=== PATIENT | male | born 1960 | race Caucasian/White ===

== ENCOUNTER → 2018-10-24 | Outpatient (CLI) | payer OTHER ==
[~2018-10-24] VITALS: Ht 170.2 cm; Wt 83.5 kg
[~2018-10-24] MED LIST: LOSARTAN POTAS100 MG PO; METAXALONE800 MG PO; METOPROLOL TART25 MG PO; NORCO 5-325 TA1 EACH PO; PROTONIX40 M1 PO; SILDENAFIL CIT100 MG PO; SYNTHROID100 MC1 PO
--- NOTE | ~2018-10-24 | P ---
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 He presents today for radiofrequency ablation of his Celeste mucosa. 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 POSTOPERATIVE DIAGNOSES: 1. 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 2. A 2-3 cm sliding type hiatus hernia. MEDICATIONS: Deep sedation with propofol per anesthesia. SPECIMEN: None. ESTIMATED BLOOD LOSS: 3 mL. PROCEDURE: EGD with radiofrequency ablation of a long segment Celeste mucosa. FINDINGS: Prior to propofol sedation, procedure of endoscopy and ablation was discussed with the patient as well as potential risks and its complications. He indicates he understands and desires to proceed. DESCRIPTION OF PROCEDURE: With the patient in left lateral decubitus position, digital examination was completed, which revealed no abnormalities. Subsequently, the Olympus video endoscope was inserted in the cervical esophagus under direct vision without difficulty. Examination of this organ through its entire length revealed normal esophageal mucosa in the very proximal esophagus. Starting at about 28 cm, the squamocolumnar junction was identified and distally was a long segment of Celeste mucosa. The top of the intestinal metaplasia was at 28 cm. The top of the gastric folds was at 37 cm. The mucosa was inspected with both white light and narrow banded imaging and the mucosa was completely flat. There were no raised lesions. There were no ulcerations. He had radiofrequency ablation at 33 cm and no scarring was seen at that level. The scope was advanced through the hiatus hernia. The mucosa and hernia was unremarkable. The scope was then advanced into the stomach, which was examined [facility] [address] [place] [address] PROCEDURE REPORT Name: PRISCILA THOMPSON Room #: REG [facility].#: [id number] Admission: 10/24/18 ������������������ Attend Phys: Morgan Mckenzie MD Discharge: ������������������ Date of : 58 Report #: [id number] on end view as well as retroflexed views. He had normal appearing gastric mucosa. Upon retroflexion, the hiatus hernia was seen. No other abnormalities were identified. The pylorus, duodenal bulb, and postbulbar sweep were all inspected and noted to be unremarkable. At that point, the scope was drawn back in the esophagus. The esophagus was rinsed with a Mucomyst solution. A guidewire was then inserted. The scope was withdrawn. Subsequently, the combination 360 balloon/sizing balloon was introduced in the esophagus over the wire. Once the Halo 360 catheter was introduced, the scope was inserted alongside the catheter. The catheter was aligned with the top of the intestinal metaplasia and the segment was treated with one application of 10 joules of energy. Good contact was obtained. The catheter was advanced 3 cm and another treatment was applied and then another 3 cm, another treatment was applied. The scope and catheter were withdrawn. The catheter was clean. The scope was fitted with the cleaning cap and the coagulant was scraped from the esophagus. There was no evidence of significant injury to the esophagus and specifically no tears were seen. All the coagulant was scraped away. The catheter was then again inserted over a guidewire and the process was repeated with 1 application at all 3 levels. After treatment, the catheter and scope withdrawn and the scope was reinserted and again a good contact was made throughout the entire long segment of Celeste's. No significant mucosal tearing was seen. Significant bleeding was not seen. Scope was withdrawn. The patient tolerated the procedure well. CONDITION OF THE PATIENT UPON DISCHARGE: Following procedure, the patient was drowsy, will be discharged home when fully ambulatory. INSTRUCTIONS TO THE PATIENT AND FAMILY AT THE TIME OF DISCHARGE: We will have the patient increase his pantoprazole to 40 mg twice daily. We will add sucralfate suspension as well, in addition add viscous lidocaine and liquid hydrocodone. We will have him return in 8 weeks for reevaluation and consideration for repeat treatment if needed. ��������������������������������������������� ���������������������������������������� By: ��������������������������������������������� 0827 2333 Morgan Mckenzie MD /rosalind
== END | disposition home or self-care (01) ==
LOC: GI 06:32
DX: K22.70 Barrett's esophagus without dysplasia (principal); D00.1 Carcinoma in situ of esophagus; K44.9 Diaphragmatic hernia without obstruction or gangrene; Z87.891 Personal history of nicotine dependence; I10 Essential (primary) hypertension; E78.5 Hyperlipidemia, unspecified; K21.9 Gastro-esophageal reflux disease without esophagitis; K76.0 Fatty (change of) liver, not elsewhere classified; E03.9 Hypothyroidism, unspecified
CPT/HCPCS: 62110; 62900

== ENCOUNTER → 2019-01-06 | Outpatient (CLI) | payer OTHER ==
[~2019-01-06] VITALS: Ht 167.6 cm; Wt 83.9 kg
[~2019-01-06] MED LIST changes: +FLEXERIL PO; +ZANTAC300 MG PO
--- NOTE | 2019-01-07 11:42 | P ---
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 Madrigal. He now presents for his second ablative therapy for Jeevan's with radiofrequency ablation. His 9 cm segment was ablated with balloons on 10/24. He reports his reflux symptoms are well controlled. He denies any dysphagia. PREOPERATIVE DIAGNOSES: History of Celeste's esophagus with intramucosal adenocarcinoma. POSTOPERATIVE DIAGNOSES: History of Celeste's esophagus with intramucosal adenocarcinoma. MEDICATIONS: Deep sedation with propofol per Anesthesia. SPECIMEN: None. ESTIMATED BLOOD LOSS: 3 mL. PROCEDURE: EGD with radiofrequency ablation. FINDINGS: Prior to propofol sedation, procedure of upper endoscopy and treatment of Celeste's was discussed with the patient as well as potential risks and its complications. He indicates he understands and desires to proceed. DESCRIPTION OF PROCEDURE: With the patient in left lateral decubitus position, Olympus video endoscope was inserted in the cervical esophagus under direct vision without difficulty. Examination of this organ throughout its entire length revealed large islands of Celeste mucosa. The gastroesophageal junction was at 38 cm, the top of intestinal metaplasia was about 29 cm. There were areas of normal appearing squamous mucosa, which was flat. There were also large islands of Celeste mucosa, scattered about. I would say about 50% of the lumen still had residual Celeste's. The Celeste mucosa was inspected. The mucosa was flat. It was rinsed with Mucomyst solution. We then treated with the 90 device per home organizer's recommendations. A total of 20 sites were treated with initial pass and 40 applications were applied on those 20 spots. With these treatments, all visible areas of Celeste's were treated. The scope was withdrawn, the device was cleaned. A cleaning cap was placed on the scope and the coagulant was scraped from the treated areas. The scope was reintroduced and we repeated and treated all areas once again with [address] [address] PROCEDURE REPORT Name: PRISCILA THOMPSON [id number] Admission: 01/06/19 ������������������ Attend Phys: Morgan Mckenzie MD Discharge: ������������������ Date of : 58 Report #: [id number] applications at each site. A total of 80 applications at 20 sites were applied today. The patient tolerated the procedure well. CONDITION OF THE PATIENT UPON DISCHARGE: Following procedure, the patient was drowsy, arousable and he will be discharged home when fully ambulatory. INSTRUCTIONS TO THE PATIENT AND FAMILY AT THE TIME OF DISCHARGE: We will have the patient continue his twice daily PPI. He also may use hydrocodone suspension as needed as well as sucralfate. He may use GI cocktail as needed. We will have him return in 8 weeks for his next endoscopy with a look and possibly treatment if needed. ��������������������������������������������� <ELECTRONICALLY SIGNED> ���������������������������������������� By: Morgan Mckenzie MD ��������������������������������������������� 01/07/19 1142 0820 1259 Morgan Mckenzie MD /nt
== END | disposition home or self-care (01) ==
LOC: GI 12-30 15:18
DX: K22.711 Barrett's esophagus with high grade dysplasia (principal); Z85.01 Personal history of malignant neoplasm of esophagus; K21.9 Gastro-esophageal reflux disease without esophagitis; I10 Essential (primary) hypertension; E03.9 Hypothyroidism, unspecified; G43.909 Migraine, unspecified, not intractable, without status migrainosus; Z87.19 Personal history of other diseases of the digestive system; Z87.891 Personal history of nicotine dependence; Z98.890 Other specified postprocedural states; Z79.899 Other long term (current) drug therapy; Z88.8 Allergy status to other drugs, medicaments and biological substances

== ENCOUNTER → 2019-03-03 | Outpatient (CLI) | payer OTHER ==
[~2019-03-03] VITALS: Ht 167.6 cm; Wt 86.2 kg
--- NOTE | 2019-03-03 17:04 | P ---
[facility] [place] [address] PROCEDURE REPORT Name: PRISCILA THOMPSON Macarena Room #: REG [facility]#: [id number] Admission: 03/03/19 ������������������ Attend Phys: Morgan Mckenzie MD Discharge: ������������������ Date of : 58 Report #: [id number] THIS REPORT FOR: //name// CC: Morgan Mckenzie BRIEF HISTORY: The patient is a 58-year-old male who has had a focal intramucosal adenocarcinoma of the esophagus, status post endoscopic mucosal resection now for treatment of his long segment Celeste's esophagus. PREOPERATIVE DIAGNOSIS: History of resected intramucosal adenocarcinoma of the esophagus with long segment Celeste's. POSTOPERATIVE DIAGNOSES: 1. Long segment Celeste esophagus. 2. Small hiatus hernia. 3. Diffuse gastritis. MEDICATIONS: Deep sedation with propofol per anesthesia. SPECIMEN: None. ESTIMATED BLOOD LOSS: None. PROCEDURE: EGD with radiofrequency ablation of Celeste esophagus. FINDINGS: Prior to propofol sedation, procedure of radiofrequency ablation of the esophagus was reviewed with the patient. He indicates he understands and desires to proceed. DESCRIPTION OF PROCEDURE: With the patient in the left lateral decubitus position, the Olympus video endoscope was inserted in the cervical esophagus under direct vision without difficulty. Examination of this organ through its entire length revealed normal esophageal mucosa in the very proximal esophagus. As we advanced the scope distally, the uppermost reaches of the intestinal metaplasia was at about 30 cm. The squamocolumnar junction was at 38 cm. In this segment of the esophagus, the Celeste mucosa area is markedly diminished from his last treatment session. Last treatment session, I estimated he had about 50% involvement of the lumen. Today, I would say it is about 20%. There are areas in particular at the very distal esophagus that there is complete circumferential normal appearing esophageal mucosa. Throughout the remainder of the segment, there are islands from small islands to several centimeters of Celeste type mucosa. The entire esophagus was examined with both white light and narrow banded imaging. The mucosa was flat. No mass lesions, nodules or ulcers were seen. The squamocolumnar junction was intact and right at the top of the gastric folds except for one small area. Distal to this area was a small [facility] [address] [place] [address] PROCEDURE REPORT Name: JAYPRISCILA Room #: REG [facility] Ken.#: [id number] Admission: 03/03/19 ������������������ Attend Phys: Morgan Mckenzie MD Discharge: ������������������ Date of : 58 Report #: [id number] 2-3 cm sliding type hiatus hernia, which has been noted in the past. The scope was advanced into the stomach, which was examined on end view as well as retroflexed views. There was diffuse gastritis, which had been previously noted. There was erythema throughout the entire stomach. No ulcers or erosions were seen. Upon retroflexion, no mass lesions were seen. The pylorus was unremarkable. Duodenal bulb was unremarkable. Duodenal sweep was unremarkable. At that point, the scope was withdrawn back into the distal esophagus. The esophagus was then rinsed with a Mucomyst solution. The Mucomyst was aspirated from the esophagus and the scope was withdrawn and fitted with the Halo 60 device and the device was reinserted in the esophagus. We then ablated all visible areas of Celeste's with two applications per trimmer hand's recommendations. Once all visible areas were treated, the scope was withdrawn. The device was removed and cleaned and a cleaning chamber was attached to the end of the scope and the coagulant was scraped from the treated areas. Upon scraping the coagulant, there was a thickened area within the Celeste segment at 35 cm. This was not noted prior to treatment. Unfortunately, this area had been treated and it was difficult to determine the significance of this abnormality. Consideration was given to biopsy, but the area was already treated and potentially it will be very difficult to interpret mucosal biopsy findings after treatment. This area will need to be looked at carefully upon his return. We then proceeded and treated all previously treated areas with two further applications. All visible areas were treated. There was no bleeding. The scope was withdrawn. The patient tolerated the procedure well. CONDITION OF THE PATIENT UPON DISCHARGE: Following procedure, the patient drowsy and he will be discharged home when fully ambulatory. INSTRUCTIONS TO THE PATIENT AND FAMILY AT THE TIME OF DISCHARGE: Significant improvement of his Celeste mucosa. He was treated as described. There is an area of concern at 35 cm, which will need to be carefully examined when he returns for his next evaluation. At that point in time, I would anticipate there just may be a few areas that require minimal treatment. He should continue his twice daily PPI and antireflux measures. ��������������������������������������������� <ELECTRONICALLY SIGNED> ���������������������������������������� By: Morgan Mckenzie MD ��������������������������������������������� 03/03/19 1704 0821 0922 Morgna Mckenzie MD /rosalind
== END | disposition home or self-care (01) ==
LOC: GI 06:28
DX: K22.70 Barrett's esophagus without dysplasia (principal); K29.70 Gastritis, unspecified, without bleeding; K44.9 Diaphragmatic hernia without obstruction or gangrene; I10 Essential (primary) hypertension; G43.909 Migraine, unspecified, not intractable, without status migrainosus; E03.9 Hypothyroidism, unspecified; K21.9 Gastro-esophageal reflux disease without esophagitis; Z87.19 Personal history of other diseases of the digestive system; Z98.890 Other specified postprocedural states; Z87.891 Personal history of nicotine dependence; Z79.899 Other long term (current) drug therapy; Z88.8 Allergy status to other drugs, medicaments and biological substances; Z79.891 Long term (current) use of opiate analgesic

== ENCOUNTER → 2019-05-05 | Outpatient (CLI) | payer OTHER ==
[~2019-05-05] VITALS: Ht 167.6 cm; Wt 86.2 kg
[~2019-05-05] MED LIST changes: +SYNTHROID112 MC1
--- NOTE | ~2019-05-05 | P ---
[facility] [place] [address] PROCEDURE REPORT Name: PRISCILA THOMPSON Room #: REG [facility]#: [id number] Admission: 05/05/19 ������������������ Attend Phys: Morgan Mckenzie MD Discharge: ������������������ Date of : 58 Report #: [id number] THIS REPORT FOR: //name// CC: Morgan Mckenzie DATE OF SERVICE: 05/05/2019 OUTPATIENT UPPER ENDOSCOPY REPORT. BRIEF HISTORY: The patient is a 58-year-old male well known to me who had a focal in situ adenocarcinoma of the esophagus which was treated with endoscopic mucosal resection. He presents for continued radiofrequency ablation of his long segment Celeste's esophagus. PREOPERATIVE DIAGNOSES: History of esophageal cancer and Celeste's esophagus. POSTOPERATIVE DIAGNOSES: 1. Celeste's esophagus. 2. Small hiatus hernia. 3. Diffuse gastritis. MEDICATIONS: Deep sedation with propofol per Anesthesia. SPECIMEN: Biopsies of esophagus at 35 cm. ESTIMATED BLOOD LOSS: 3 mL PROCEDURE: EGD with radiofrequency ablation and biopsy. FINDINGS: Prior to propofol sedation, the procedure of upper endoscopy and radiofrequency ablation was discussed with the patient as well as potential risks and its complications. He indicates he understands and desires to proceed. DESCRIPTION OF PROCEDURE: With the patient in left lateral decubitus position, the Olympus video endoscope was inserted in the cervical esophagus without difficulty. Examination of this organ through its entire length revealed normal esophageal mucosa in the mid esophagus. As we advanced the scope starting at about 32 cm, a few scattered islands of Celeste's mucosa were seen. However, no circumferential Celeste was seen today. This squamocolumnar junction was identified at about 40 cm. A small hiatus hernia was intermittently seen. The scope was advanced into the stomach, which was examined on end view as well as retroflexed views. There was a pattern of gastritis been previously noted. Biopsies were not obtained today. Upon retroflexion, no mass lesions were seen. [facility] [address] [place] [address] PROCEDURE REPORT Name: JAYPRISCILA Room #: REG [facility]#: [id number] Admission: 05/05/19 ������������������ Attend Phys: Morgan Mckenzie MD Discharge: ������������������ Date of : 58 Report #: [id number] The pylorus, duodenal bulb and postbulbar and sweep were inspected and noted to be unremarkable. The scope was then withdrawn back in the esophagus. We continued to examine the esophagus with both white light and narrow banded imaging. Again, there were just a few scattered islands of Celeste with 1 at the squamocolumnar junction and in the most proximal at 32 cm. Also, particular attention was paid to the esophagus at 35 cm. At the time of his last treatment, following treatment with radiofrequency ablation, there was a questionable raised area at 35 cm. It was not clear whether this was an island of Celeste that was more obvious after treatment or whether it actually represented a raised area. It was not seen prior to treatment. This area was carefully examined with white light and narrow banded imaging. Almost the entire circumference at this level was completely healed with squamous mucosa. I could not see any raised lesions, strictures or mass lesions. There was an island of Celeste at this level. The mucosa was completely flat. Again, no raised areas were seen. Random biopsies were obtained of the squamous mucosa. These areas were not treated today. Subsequently, we rinsed the esophagus with Mucomyst solution. The scope was withdrawn and fitted with the 60 device and reinserted and all visible areas of Celeste were treated with 2 applications of 12 joules per cm2 per training representative's instructions. After 2 passes were made at each site, the scope was withdrawn, the device was cleaned and the scope was fitted with a cleaning cap and the coagulant was scraped from the treated areas. We then reinserted the device and treated all areas once again with 2 additional applications. We also identified 1 focal area, which was missed on the first treatment past and this site was treated with 2 applications and then repeated with another 2. A total of 8 sites were treated today with 32 applications. All visible areas were treated. The scope was withdrawn. The patient tolerated the procedure well. CONDITION OF THE PATIENT UPON DISCHARGE: Following procedure, the patient drowsy and will be discharged home when fully ambulatory. INSTRUCTIONS TO THE PATIENT AND FAMILY AT THE TIME OF DISCHARGE: Areas of Celeste's treated as described. No raised or flat lesions were seen today. Biopsies were obtained of an area which was suspicious at the time of his last treatment. We will follow up on biopsies and make further recommendations. At this point in time, we will plan to have him return in 8 weeks for repeat inspection and potential treatment with radiofrequency ablation. ��������������������������������������������� ���������������������������������������� By: ��������������������������������������������� 0910 2307 Morgan Mckenzie MD /rosalind
--- NOTE | 2019-05-08 13:07 | PATH ---
[facility] [address] [place] [address] PATHOLOGY RPT PROCEDURE Name: MYLENERUBIPRISCILA Room #: REG WILL[facility] Rogers.#: [id number] ������������������ Admission: 05/05/19 ������������������ Date of : 58 Discharge: Report #: [id number] Path Case #: [id number] [facility] Accession Number: [id number] . 01 Material submitted: . esophagus - BX OF ESOPHAGUS AT 35CM . 01 Clinical history: . Adenocarcinoma in situ esophagus status post mucosal resection and radiofrequency ablation, Celeste's esophagus. . 02 Diagnosis: Squamous mucosa, esophagus at 35 cm rule out dysplasia or neoplasm, endoscopic biopsy: - Reactive/reparative changes. See comment. - Negative for malignancy. (IUV:medical technologist chief; 05/08/2019) [facility] 05/08/2019 1042 Local . 02 Comment: Examination shows reactive squamous epithelial fragments overlying fibrotic stroma underneath associated with focal hemorrhage. Columnar epithelium/mucosa or intestinal metaplasia are not identified. The provided history of adenocarcinoma in situ status post mucosal resection and a radiofrequency ablation is noted. There is no dysplasia or malignancy present within the current biopsy tissue material submitted. (IUV:medical technologist chief; 05/08/2019) . 02 Electronically signed: . Keiko Zaragoza MD, Pathologist NPI- [id number] . 01 Gross description: . Received in formalin labeled "Priscila Crawford, BX of esophagus at 35 cm" is a 0.8 x 0.4 x 0.1 cm aggregate of melissa-brown mucosa fragments. The specimen is submitted in A1. ([facility]; 05/06/2019) [facility] 05/06/2019 1536 Local . 02 Pathologist provided ICD-10: D00.1, K22.70 . 02 CPT . 578720 Specimen Comment: A courtesy copy of this report has been sent to Specimen Comment: [phone], . Specimen Comment: Report sent to / DR WARD Performed at: [address] [place] [address] PATHOLOGY RPT PROCEDURE Name: PRISCILA CRAWFORD Room #: REG WILLIE Palacio#: [id number] ������������������ Admission: 05/05/19 ������������������ Date of : 58 Discharge: Report #: [id number] Path Case #: [id number] [facility] Fanny Daugherty [address] [place] [address] [address], Fanny Daugherty [place] [id number] MD Christiano Valencia MD Phone: [phone] Performed at: [address] [id number] MD Keiko Zaragoza MD Phone: [phone]
== END | disposition home or self-care (01) ==
LOC: GI 07:03
DX: K22.70 Barrett's esophagus without dysplasia (principal); K44.9 Diaphragmatic hernia without obstruction or gangrene; K29.70 Gastritis, unspecified, without bleeding; I10 Essential (primary) hypertension; G43.909 Migraine, unspecified, not intractable, without status migrainosus; K21.9 Gastro-esophageal reflux disease without esophagitis; E03.9 Hypothyroidism, unspecified; Z87.891 Personal history of nicotine dependence; Z86.008 Personal history of in-situ neoplasm of other site; Z98.890 Other specified postprocedural states; Z79.899 Other long term (current) drug therapy; Z88.0 Allergy status to penicillin; Z79.891 Long term (current) use of opiate analgesic; Z88.8 Allergy status to other drugs, medicaments and biological substances
CPT/HCPCS: 62110; 62900

== ENCOUNTER → 2019-06-16 | Outpatient (CLI) | payer OTHER ==
--- NOTE | 2019-06-19 11:53 | P ---
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 PREOPERATIVE DIAGNOSIS: Celeste's esophagus with history of esophageal carcinoma. POSTOPERATIVE DIAGNOSES: 1. Celeste's esophagus, history of carcinoma of the esophagus. 2. Small hiatus hernia. MEDICATIONS: Deep sedation with propofol per anesthesia. SPECIMEN: None. ESTIMATED BLOOD LOSS: None. PROCEDURE: Radiofrequency ablation of Celeste's esophagus. FINDINGS: Prior to propofol sedation, the procedure of upper endoscopy and radiofrequency ablation was discussed with the patient as well as potential risks and its complications. He indicates he understands and desires to proceed. DESCRIPTION OF PROCEDURE: With the patient in left lateral decubitus position, the Olympus video endoscope was inserted in the cervical esophagus under direct vision without difficulty. Examination of this organ through its entire length revealed intact esophageal mucosa. The patient has had multiple treatment sessions with the radiofrequency ablation. The entire length of the esophagus was examined with both white light and narrow banded imaging. Examination of the squamocolumnar junction revealed it to be somewhat irregular at 2 points. This may or may not present residual Celeste's esophagus. As we examined the entire length of the esophagus, several small islands of residual Celeste's mucosa were identified. His intramucosal carcinoma was I believe at about 33 cm and at one point, there was also concern about a raised area at 35 cm. Extra care was given to these areas. There is no evidence of thickening or mass lesions or ulcerations. The residual islands of Celeste scattered from about 25 cm down to the squamocolumnar junction. The scope was advanced fully into the stomach, was examined on end view as well as retroflexed views. [facility] [address] [place] [address] PROCEDURE REPORT Name: PRISCILA THOMPSON Room #: REG [facility].#: [id number] Admission: 06/16/19 Attend Phys: Morgan Mckenzie MD Discharge: Date of : 58 Report #: [id number] abnormalities were seen. Upon retroflexion, no mass lesions were seen. The pylorus, duodenal bulb, and postbulbar duodenal sweep were inspected and noted to be unremarkable. The scope was then withdrawn back into the esophagus. The esophagus was rinsed with a Mucomyst solution. Then, we used the channel catheter and treated 6 areas of suspected residual Celeste's mucosa. A total of 24 applications were applied with 4 applications at each location The patient tolerated the procedure well. CONDITION OF THE PATIENT UPON DISCHARGE: Following procedure, the patient drowsy and arousable. He will be discharged home when fully ambulatory. INSTRUCTIONS TO THE PATIENT AND FAMILY AT THE TIME OF DISCHARGE: All visible areas of Celeste were treated today. We will treat with high dose PPI. We will have him return in 8 weeks and likely at that time, biopsies of his esophagus. <ELECTRONICALLY SIGNED> By: Morgan Mckenzie MD 06/19/19 1153 0853 1859 Morgan Mckenzie MD /nt
== END | disposition home or self-care (01) ==
LOC: GI 07:12
DX: K22.70 Barrett's esophagus without dysplasia (principal); K44.9 Diaphragmatic hernia without obstruction or gangrene; Z85.01 Personal history of malignant neoplasm of esophagus; Z98.890 Other specified postprocedural states; Z88.8 Allergy status to other drugs, medicaments and biological substances; Z79.891 Long term (current) use of opiate analgesic; Z79.899 Other long term (current) drug therapy
CPT/HCPCS: 62110; 62900

== ENCOUNTER → 2019-08-11 | Outpatient (CLI) | payer OTHER ==
[~2019-08-11] VITALS: Ht 167.6 cm; Wt 86.2 kg
[~2019-08-11] MED LIST changes: +MULTI VITAMIN1 EACH PO; -SYNTHROID112 MC1; +SYNTHROID112 MC1 PO
--- NOTE | 2019-08-14 17:09 | P ---
[facility] [place] [address] PROCEDURE REPORT Name: JAYPRISCILA Macarena Room #: REG [facility]#: [id number] Admission: 08/11/19 Attend Phys: Morgan Mckenzie MD Discharge: Date of : 58 Report #: [id number] THIS REPORT FOR: //name// CC: Morgan Mckenzie OUTPATIENT UPPER ENDOSCOPY REPORT BRIEF HISTORY: The patient is a 58-year-old male with a history of Celeste's esophagus with intramucosal adenocarcinoma treated with endoscopic mucosal resection and subsequently treated with radiofrequency ablation for his long segment Celeste's esophagus. He presents for followup evaluation and possible treatment if indicated. PREOPERATIVE DIAGNOSIS: Long segment Celeste's esophagus with intramucosal adenocarcinoma, status post treatment. POSTOPERATIVE DIAGNOSES: 1. History of Celeste's, status post endoscopic mucosal resection and radiofrequency ablation. 2. Small hiatus hernia. 3. Diffuse gastritis. MEDICATIONS: Deep sedation with propofol per anesthesia. SPECIMENS: 1. Biopsies of esophagus at 40 cm. 2. Biopsies of esophagus at 38 cm. 3. Biopsies of esophagus at 36 cm. 4. Biopsies of esophagus at 34 cm. 5. Biopsies of esophagus at 32 cm. ESTIMATED BLOOD LOSS: 5 mL. PROCEDURE: EGD with biopsy. FINDINGS: Prior to propofol sedation, procedure of upper endoscopy was discussed with the patient as well as potential risks and its complications. He indicates he understands and desires to proceed. DESCRIPTION OF PROCEDURE: With the patient in left lateral decubitus position, the Olympus video endoscope was inserted in cervical esophagus under direct vision without difficulty. Examination of this organ through its entire length revealed normal esophageal mucosa down the squamocolumnar junction. Squamocolumnar junction was inspected and noted to be intact. It was in good position at the top of the gastric folds, which was identified at about 40 cm. [facility] [address] [place] [address] PROCEDURE REPORT Name: PRISCILA THOMPSON Room #: REG [facility]#: [id number] Admission: 08/11/19 Attend Phys: Morgan Mckenzie MD Discharge: Date of : 58 Report #: [id number] The scope was passed through the entire length of esophagus on multiple times and both narrow banded imaging and white light were used. The mucosa was intact. It was flat. There were no ulcerations. Celeste's esophagus was not identified. The scope was advanced and a small sliding type hiatus hernia was noted. The mucosa and hernia was unremarkable. The scope was advanced in the stomach, was examined on end views as well as retroflexed views. There was a diffuse gastritis, which previously noted. Biopsies were not repeated today. Upon retroflexion, the hiatus hernia was seen. The squamocolumnar junction was identified and noted to be unremarkable. The scope was then further advanced where the pylorus was unremarkable. Duodenal bulb was unremarkable and postbulbar duodenal sweep was inspected and noted to be unremarkable. The scope was then withdrawn back in the esophagus and multiple biopsies were obtained along the GE junction as well as the entire previously treated long segment of Celeste mucosa. Scope was withdrawn. The patient tolerated the procedure well. CONDITION OF THE PATIENT UPON DISCHARGE: Following procedure, the patient drowsy and arousable. He will be discharged home when fully ambulatory. INSTRUCTIONS TO THE PATIENT AND FAMILY AT THE TIME OF DISCHARGE: A definite Celeste was not seen today. We will follow up on biopsies and make further recommendations. If there was no evidence of Celeste's mucosa, he should return in 3 months for followup endoscopy and biopsy of the squamocolumnar junction. If Celeste is present, he may need additional treatment. He should continue his twice daily PPI and ranitidine as needed. <ELECTRONICALLY SIGNED> By: Morgan Mckenzie MD 08/14/19 1709 Morgan Mckenzie MD /nt
--- NOTE | 2019-08-15 13:07 | PATH ---
[facility] [place] [address] PATHOLOGY RPT PROCEDURE Name: JAYPRISCILA Room #: REG [facility] M.R.#: [id number] Admission: 08/11/19 Date of : 58 Discharge: Report #: [id number] Path Case #: [id number] [facility] Accession Number: [id number] . 01 Material submitted: . PART A: colon - BIOPSY OF GE JUNCTION PART B: esophagus - BIOPSY OF ESOPHAGUS AT 38CM PART C: esophagus - BIOPSY OF ESOPHAGUS AT 36CM PART D: esophagus - BIOPSY OF ESOPAGUS AT 34CM PART E: esophagus - BIOPSY OF ESOPHAGUS AT 32CM . 01 Clinical history: . History of Celeste's with esophageal cancer, hiatus hernia, gastritis . 02 Diagnosis: A. "GE junction, status post ablation to rule out Celeste's, at 40 cm, biopsy": - Squamocolumnar epithelium with moderate acute and chronic inflammation. - No evidence of intestinal metaplasia. . B, C, D and E. Esophagus, 38 cm, 36 cm, 34 cm, and 32 cm, biopsy: - Hyperplastic squamous epithelium without significant inflammation. - No columnar epithelium identified. . (SKM:corinne; 08/15/2019) QLM 08/15/[address] [facility] . 02 Electronically signed: . Piotr Smith MD, Pathologist NPI- [id number] . 01 Gross description: . A. The specimen is received in formalin, labeled "Priscila Crawford, GE junction biopsy to R/O Celeste's". Received are eight segments of pale melissa soft tissue ranging in size from 0.3 to 0.5 cm in maximum dimensions. The specimen is submitted entirely in cassette A1. . B. The specimen is received in formalin, labeled "Priscila Crawford, biopsy of esophagus at 38 cm". Received are six segments of pale melissa soft tissue ranging in size from 0.3 to 0.5 cm in maximum dimensions. The specimen is submitted entirely in cassette B1. . C. The specimen is received in formalin, labeled "Priscila Crawford, biopsy of esophagus at 36 cm". Received are eight segments of pale melissa soft tissue ranging in size from 0.2 to 0.5 cm in maximum dimensions. The specimen is submitted entirely in [place] [address] PATHOLOGY RPT PROCEDURE Name: MYLENEPRISCILA VENEGAS [id number] Admission: 08/11/19 Date of : 58 Discharge: Report #: [id number] Path Case #: [id number] D. The specimen is received in formalin, labeled "Priscila Crawford, biopsy of esophagus at 34 cm". Received are seven segments of pale melissa soft tissue ranging in size from 0.2 to 0.4 cm in maximum dimensions. The specimen is submitted entirely in cassette D1. . E. The specimen is received in formalin, labeled "Priscila Crawford, biopsy of esophagus at 32 cm". Received are five segments of pale melissa soft tissue ranging in size from 0.3 to 0.4 cm in maximum dimensions. The specimen is submitted entirely in cassette E1. (CAA; 08/14/2019) QAC/QAC 08/14/2019 1548 Local . 02 Pathologist provided ICD-10: K20.8 . 02 CPT . 315307, 629519, 453467, 143526, 295233 Specimen Comment: A courtesy copy of this report has been sent to [phone] Specimen Comment: [phone], Specimen Comment: Report sent to ,DR WARD / DR FRANCIS Performed at: [address] [facility] [address], [place], [place] [id number] MD Christiano Valencia MD Phone: [phone] Performed at: [address] [facility] [address] [id number] MD Keiko Zaragoza MD Phone: [phone]
== END | disposition home or self-care (01) ==
LOC: GI 07-07 15:26
DX: K20.8 Other esophagitis (principal); K29.70 Gastritis, unspecified, without bleeding; K44.9 Diaphragmatic hernia without obstruction or gangrene; K21.9 Gastro-esophageal reflux disease without esophagitis; G43.909 Migraine, unspecified, not intractable, without status migrainosus; I10 Essential (primary) hypertension; E03.9 Hypothyroidism, unspecified; Z98.890 Other specified postprocedural states; Z79.899 Other long term (current) drug therapy; Z87.891 Personal history of nicotine dependence; Z88.1 Allergy status to other antibiotic agents; Z88.8 Allergy status to other drugs, medicaments and biological substances
CPT/HCPCS: 62110; 62900

== ENCOUNTER → 2020-02-02 | Outpatient (CLI) | payer OTHER ==
[~2020-02-02] VITALS: Ht 167.6 cm; Wt 92.5 kg
[~2020-02-02] MED LIST changes: +FISH OIL 1,0001 EAC9 PO
--- NOTE | 2020-02-05 08:50 | P ---
[facility] [place] [address] PROCEDURE REPORT Name: PRISCILA THOMPSON Room #: REG [facility]#: [id number] Admission: 02/02/20 Attend Phys: Morgan Mckenzie MD Discharge: Date of : 58 Report #: [id number] THIS REPORT FOR: cc: Morgan Raya MD, John H. MD Thesing,Morgan Desai MD ~ CC: Morgan Mckenzie BRIEF HISTORY: The patient is a 59-year-old male with a history of Celeste's esophagus with high-grade dysplasia and intramucosal adenocarcinoma, treated with endoscopic mucosal resection of the small carcinoma and subsequent treatment of the esophagus with radiofrequency ablation. He presents for followup evaluation and monitor his history of adenocarcinoma of the esophagus. PREOPERATIVE DIAGNOSES: History of adenocarcinoma of the esophagus and Celeste's. POSTOPERATIVE DIAGNOSES: 1. A 3-cm sliding type hiatus hernia. 2. Diffuse gastritis. 3. Very questionable mucosal irregularity, distal esophagus. MEDICATIONS: Deep sedation with propofol per anesthesia. SPECIMENS: 1. Biopsies of GE junction at 37 cm. 2. Biopsy of questionable lesion, distal esophagus at 35 cm. 3. Biopsy of questionable lesion at 30 cm, esophagus. ESTIMATED BLOOD LOSS: 3 mL. PROCEDURE: EGD with biopsy. FINDINGS: Prior to propofol sedation, the procedure of upper endoscopy was reviewed with the patient as well as potential risks and its complications. He indicates he understands and desires to proceed. DESCRIPTION OF PROCEDURE: With the patient in the left lateral decubitus position, the Olympus video endoscope was inserted in the cervical esophagus under direct vision without difficulty. Examination of this organ through its entire length revealed normal esophageal mucosa throughout the length of the esophagus. The esophagus was examined with both white light and narrow banded imaging. I did not see obvious Celeste mucosa. The squamocolumnar junction was intact. It was slightly irregular, but obvious Celeste mucosa was not seen. The squamocolumnar junction was essentially at the top of the gastric folds. [facility] [address] [place] [address] PROCEDURE REPORT Name: PRISCILA THOMPSON Room #: REG [facility]#: [id number] Admission: 02/02/20 Attend Phys: Morgan Mckenzie MD Discharge: Date of : 58 Report #: [id number] Multiple passes were made with the scope with white light as well as narrow banded imaging. About 2 cm proximal to the GE junction, there was a very questionable area of mucosal irregularity. It did not appear to be obvious Celeste, but the mucosa appeared somewhat irregular and this area was biopsied. A similar area that was even more subtle 30 cm was seen and biopsied as well. The scope was advanced and he has a 3-cm sliding type hiatus hernia. The mucosa of hernia was unremarkable. The scope was advanced in the stomach, was examined on end view as well as retroflexed views. He does have the gastritis which has been noted in the past. It is most in the antrum, but there are linear striations in the body of the stomach as well. No ulcers were seen. No bleeding lesions were seen. Upon retroflexion, hiatus hernia was seen, but no other abnormalities were identified. The pylorus, duodenal bulb and postbulbar duodenal sweep were all inspected and noted to be unremarkable. At that point, the scope was slowly withdrawn and careful circumferential views confirmed the above findings. The patient tolerated the procedure well. CONDITION OF THE PATIENT UPON DISCHARGE: Following procedure, the patient drowsy, arousable and conversant and will be discharged home when fully ambulatory. INSTRUCTIONS TO THE PATIENT AND FAMILY AT THE TIME OF DISCHARGE: We will follow up on biopsies and make further recommendations. If there is no evidence of Celeste and no evidence of dysplasia, he should return for followup in 1 year. He also should continue his PPI on a daily basis. If there is Celeste or dysplasia, further intervention or evaluation may be needed. He will otherwise return to the care of Dr. Morgan Raya. <ELECTRONICALLY SIGNED> By: Morgan Mckenzie MD 02/05/20 0850 0812 0843 Morgan Mckenzie MD /nt
--- NOTE | 2020-02-06 10:07 | PATH ---
[facility] [place] [address] PATHOLOGY RPT PROCEDURE Name: PRISCILA CRAWFORD Macarena Room #: REG [facility] M.Deng.#: [id number] Admission: 02/02/20 Date of : 58 Discharge: Report #: [id number] Path Case #: [id number] [facility] Accession Number: [id number] . 01 Material submitted: . PART A: esophagus - BX OF GE JUNCTION AT 37CM PART B: esophagus - BX OF ESOPHAGUS AT 35CM PART C: esophagus - BX OF ESOPHAGUS AT 30CM . 01 Clinical history: . History of Celeste's with high-grade dysplasia and intramucosal adenocarcinoma . 02 Diagnosis: A. Gastroesophageal mucosa, GE junction at 37 cm, endoscopic biopsy: - Gastric cardia-type mucosa with moderate acute and chronic inflammation. - Squamous mucosa with active esophagitis. - Negative for intestinal metaplasia or dysplasia. . B. Squamous mucosa, esophagus at 35 cm, endoscopic biopsy: - Mild active esophagitis. - Negative for intestinal metaplasia or dysplasia. . C. Gastroesophageal mucosa, esophagus at 30 cm, endoscopic biopsy: - Gastric cardia-type mucosa with focal intestinal metaplasia, compatible with the provided history of Celeste's metaplasia. - Squamous mucosa with mild esophagitis. - Negative for dysplasia. (IUV:pit 02/05/2020) [facility] 02/05/2020 1557 Local . 02 Comment: The provided history of high-grade dysplasia was well as intramucosal adenocarcinoma is noted. There is no evidence of dysplasia present within the current biopsy tissue material. (IUV:pit 02/05/2020) . 02 Electronically signed: . Keiko Zaragoza MD, Pathologist NPI- [id number] . 01 Gross description: . A. The specimen is received in formalin labeled "Priscila Crawford BX of GE junction at 35 cm" and consists of multiple fragments of melissa-brown tissue measuring 1.2 x 0.4 x 0.3 cm in aggregate which are entirely [place] [address] PATHOLOGY RPT PROCEDURE Name: PRISCILA CRAWFORD [id number] Admission: 02/02/20 Date of : 58 Discharge: Report #: [id number] Path Case #: [id number] B. The specimen is received in formalin labeled "Priscila Crawford BX of esophagus at 35 cm" and consists of multiple fragments of white-melsisa tissue measuring 0.4 x 0.2 x 0.2 cm in aggregate which are entirely submitted in B1. . C. The specimen is received in formalin labeled "Priscila Crawford, MELYSSA of esophagus at 30 cm" and consists of multiple fragments of white-melissa tissue measuring 0.4 x 0.2 x 0.1 cm in aggregate which are entirely submitted in C1. ([facility]; 02/02/2020) JFQ/JFQ 02/05/2020 1552 Local . 02 Pathologist provided ICD-10: K20.9, C15.9, K22.711 . 02 CPT . 432512, 475096, 267587 Specimen Comment: A courtesy copy of this report has been sent to [phone] Specimen Comment: [phone] Specimen Comment: Report sent to / DR WARD Performed at: [address], [place] [id number] MD Christiano Valencia MD Phone: [phone] Performed at: [address] [id number] MD Keiko Zaragoza MD Phone: [phone]
== END | disposition home or self-care (01) ==
LOC: GI 11-10 09:52
PROVIDERS: ATTEND Specialist
DX: Z08 Encounter for follow-up examination after completed treatment for malignant neoplasm (principal); Z85.01 Personal history of malignant neoplasm of esophagus; K29.50 Unspecified chronic gastritis without bleeding; K21.0 Gastro-esophageal reflux disease with esophagitis; K22.711 Barrett's esophagus with high grade dysplasia; K44.9 Diaphragmatic hernia without obstruction or gangrene; I10 Essential (primary) hypertension; E03.9 Hypothyroidism, unspecified; G43.909 Migraine, unspecified, not intractable, without status migrainosus; Z98.890 Other specified postprocedural states; Z11.59 Encounter for screening for other viral diseases; Z79.899 Other long term (current) drug therapy; Z87.891 Personal history of nicotine dependence; Z88.8 Allergy status to other drugs, medicaments and biological substances
CPT/HCPCS: 62110; 62900

== ENCOUNTER → 2020-03-11 | Outpatient (CLI) | payer OTHER ==
[~2020-03-11] MED LIST changes: +BENICAR40 MG PO; +TOPROL XL50 MG PO
== END ==
LOC: LAB 08:00
PROVIDERS: ATTEND Student in an Organized Health Care Education/Training Program
DX: Z01.812 Encounter for preprocedural laboratory examination (principal); Z11.59 Encounter for screening for other viral diseases

== ENCOUNTER → 2020-03-15 | Outpatient (CLI) | payer OTHER ==
[~2020-03-15] VITALS: Ht 167.6 cm; Wt 90.7 kg
--- NOTE | 2020-03-18 14:35 | P ---
[facility] [place] [address] PROCEDURE REPORT Name: PRISCILA THOMPSON Room #: REG [facility]#: [id number] Admission: 03/15/20 Attend Phys: Morgan Mckenzie MD Discharge: Date of : 58 Report #: [id number] THIS REPORT FOR: cc: Morgan Raya MD, John H. MD Thesing,Morgan Desai MD ~ CC: Morgan Mckenzie OUTPATIENT UPPER ENDOSCOPY REPORT BRIEF HISTORY: The patient is a 59-year-old male well known to me with a history of long segment Celeste's esophagus with previous radiofrequency ablation. He recently underwent surveillance exam and was found to have focal areas at 30 cm on biopsy. PREOPERATIVE DIAGNOSIS: Ecleste's esophagus, long segment with persistent Celeste's mucosa at 30 cm. POSTOPERATIVE DIAGNOSES: 1. Celeste's esophagus. 2. Erosive esophagitis grade A. 3. A 4-cm sliding type hiatus hernia. MEDICATIONS: Deep sedation with propofol per Anesthesia. SPECIMEN: None. ESTIMATED BLOOD LOSS: None. PROCEDURE: EGD with radiofrequency ablation of the esophagus. FINDINGS: Prior to propofol sedation, the procedure of upper endoscopy and ablation was discussed with the patient as well as potential risks and its complications. He indicates he understands and desires that we proceed. DESCRIPTION OF PROCEDURE: With the patient in left lateral decubitus position, the Olympus video endoscope was inserted into the cervical esophagus under direct vision without difficulty. The entire length of the esophagus was examined with white light and narrow banded imaging. Initially, no abnormalities were seen in the body of the esophagus. At the squamocolumnar junction, there were several erosions consistent with grade A erosive esophagitis. The scope was advanced into about a 4-cm sliding type hiatus hernia. The diaphragmatic hiatus was identified at about 39 cm. No abnormalities were noted within the hiatus hernia. The scope was advanced into the stomach, was examined on end view as well as retroflexed views. There was a [facility] [address] [address] PROCEDURE REPORT Name: PRISCILA THOMPSON Room #: REG [facility]#: [id number] Admission: 03/15/20 Attend Phys: Morgan Mckenzie MD Discharge: Date of : 58 Report #: [id number] pattern of diffuse gastritis. No ulcers or erosions were seen. The mucosa was intact. This has been previously documented. The proximal stomach was examined on end view as well as retroflexed views and no additional abnormalities were seen. The pylorus was normal. Duodenal bulb was normal. Postbulbar duodenal sweep was inspected and noted to be unremarkable. The scope was then withdrawn back in the esophagus. We then underwent an extensive search of the esophagus for evidence of Celeste's mucosa. Multiple insertions and withdrawals of the scope were undertaken using both white light and narrow banded imaging. With white light, no mucosal abnormalities were seen. With narrow banded imaging, there were punctate areas at 30 cm. These were not very large and I suspect partially reduced in size from previous biopsies. The mucosa was rinsed with Mucomyst solution. We then treated with the [id number] ablation device. Total of 4 applications were applied at one position and just cephalad to that area was another focal area and again 4 applications were applied. A total of 8 applications were applied at 2 levels. No other abnormalities were seen. There was no bleeding. Scope was withdrawn. The patient tolerated the procedure well. CONDITION OF THE PATIENT UPON DISCHARGE: Following the procedure, the patient drowsy and arousable, will be discharged home when fully ambulatory. INSTRUCTIONS TO THE PATIENT AND FAMILY AT THE TIME OF DISCHARGE: The patient with findings as noted above and treated as described. Since he does have evidence of esophagitis, we will have him increase his pantoprazole to 40 mg twice daily. We will have him return in 6 months for repeat surveillance examination. As for the esophagitis, he denies any heartburn but clearly erosions are present in several areas along the squamocolumnar junction. Hopefully, these areas will have cleared up when he returns for his surveillance exam in about 6 months. <ELECTRONICALLY SIGNED> By: Morgan Mckenzie MD 03/18/20 1435 0808 0922 Morgan Mckenzie MD /nt
== END | disposition home or self-care (01) ==
LOC: GI 06:30
PROVIDERS: ATTEND Specialist
DX: K22.70 Barrett's esophagus without dysplasia (principal); K44.9 Diaphragmatic hernia without obstruction or gangrene; I10 Essential (primary) hypertension; G43.909 Migraine, unspecified, not intractable, without status migrainosus; K21.9 Gastro-esophageal reflux disease without esophagitis; E03.9 Hypothyroidism, unspecified; Z98.890 Other specified postprocedural states; Z79.899 Other long term (current) drug therapy; Z87.891 Personal history of nicotine dependence; Z88.8 Allergy status to other drugs, medicaments and biological substances
CPT/HCPCS: 62110; 62900